=== PATIENT | female | born 2000 | race Caucasian/White ===

== ENCOUNTER 2022-04-16 20:10 | Emergency (ER) | payer BC, SELFPAY ==
[2022-04-16 20:24] VITALS: BP 113/65; PULSE 74; RESP 16; TEMP 36.8; O2SAT 99; BMI 22.9
--- NOTE | 2022-04-16 20:38 | ED_ITS ---
HPI - Eye Problem General Chief complaint: Eye Problems Stated complaint: RIGHT EYE VISION ISSUES,ITCHING Time Seen by Provider: 04/16/22 20:21 Source: patient Mode of arrival: ambulatory Limitations: no limitations History of Present Illness HPI Narrative: 21-year-old female coming in today concerned about right eye irritation going on since yesterday. She just feels that the eye is irritated and it bothers her. She denies it being painful. She states that her vision got a little bit blurry today. States that the eye is red but has no significant drainage. No light sensitivity. No pain above or below the eye. No headache. No nausea or vomiting. No fevers chills or other systemic symptoms. She denies any trauma or injury to the eye. She states that she use some clear eye eyedrops earlier today and caused a burning sensation. Related Data Home Medications Medication Instructions Recorded Confirmed cetirizine 10 mg tablet (Wal-Zyr 10 mg PO DAILY PRN 04/16/22 04/16/22 (cetirizine)) naphazoline 0.012 % eye drops 2 drp OPHTHALMIC (EYE) PRN 04/16/22 Allergies Allergy/AdvReac Type Severity Reaction Status Date / Time No Known Drug Allergies Allergy Verified 04/16/22 20:29 Review of Systems Status of ROS: Reports: 10 or more systems reviewed and unremarkable except as noted in History and below [facility] Medical History (Updated 04/16/22 @ 20:38 by Diana Mart MD) Environmental allergies Surgical History (Updated 04/16/22 @ 20:33 by Franchesca Vo RN) History of section Exam Const: Vital Signs, click to edit/add: Vital Signs - 24 hr 04/16/22 20:24 Temperature 98.3 F Pulse Rate [Left P ulse Oximeter] 74 Respiratory Rate 16 Blood Pressure [Ri ght Upper Arm] 113/65 Pulse Oximetry 99 Common normals: no apparent distress, average body habitus, oriented x3, no limitations, healthy appearing, alert and well nourished General appearance: cooperative, comfortable and well kempt HENMT: Common normals: normocephalic, head/scalp atraumatic, hearing grossly normal bilaterally, external ears normal and external nose normal Head and s calp: normocephalic and atraumatic Nose: external nose normal External ear: external ears normal Eye: Common normals: PERRL, EOMs intact bilaterally and no scleral icterus Visual acuity: visual acuity right eye Visual acuity (R) = 20/: 50 and visual acuity left eye Visual acuity (L) = 20/: 25 Alignment: alignment normal Conjunctiva: conjunctiva abnormal right conjunctival injection Sclera: sclerae normal Cornea: corneas normal and fluorescein used (No evidence of abrasions or foreign bodies visualized with Wood's lamp exam) Pupil: PERRL Neuro: Common normals: oriented x3 Sensorium/orientation: alert Psych: Appearance: well kempt Course Vital Signs Vital signs: Initial Vital Signs Temperature 98.3 F 04/16/22 20:24 Temperature Source Temporal Artery Scan 04/16/22 20:24 Pulse Rate 74 04/16/22 20:24 Respiratory Rate 16 04/16/22 20:24 Blood Pressure 113/65 04/16/22 20:24 Blood Pressure Mean 81 04/16/22 20:24 Blood Pressure Position High-Fowlers 04/16/22 20:24 Pulse Oximetry 99 04/16/22 20:24 Oxygen Delivery Method 04/16/22 20:24 Vital Signs Temperature 98.3 F 04/16/22 20:24 Pulse Rate 74 04/16/22 20:24 Respiratory Rate 16 04/16/22 20:24 Blood Pressure 113/65 04/16/22 20:24 Pulse Oximetry 99 04/16/22 20:24 Temperature 98.3 F 04/16/22 20:24 Pulse Rate 74 04/16/22 20:24 Respiratory Rate 16 04/16/22 20:24 Blood Pressure 113/65 04/16/22 20:24 Pulse Oximetry 99 04/16/22 20:24 MDM - Eye Problem MDM Narrative Medical decision making narrative: Irritation of the right eye with scleral injection. Probable conjunctivitis. Will treat with Polytrim eye ointment 3 times a day for 5 days. Discussed reasons to return for follow-up. Discussed potential differential diagnosis including conjunctivitis, iritis, increased intra-ocular pressure. Again patient is not improving with treatment in the next 1-2 days she has follow-up with an eye physician. Differential Diagnosis Differential diagnosis: Likely conjunctivitis and acute iritis Discharge Plan Discharge Clinical Impression: Conjunctivitis Patient Disposition: Home, Self-Care Condition: Stable Additional Instructions: Use eye antibiotic ointment 3 times per day for 5 days. Follow up with an eye doctor if you are not feeling relief in the next 2 days. Follow-up sooner if you are getting worse instead of better. Prescriptions: No Action cetirizine [Wal-Zyr (cetirizine)] 10 mg tablet 10 mg PO DAILY PRN0RF naphazoline 0.012 % drops 2 drp ophthalmic (eye) PRN0RF Follow Up/Referrals: Orlando Nelson PA-C [Primary Care Provider] - Stand Alone Forms: [employer] Info Instructions
[2022-04-16] MEDS: TETRACAINE 0.5% OPHTH 1 DROP EYE-RIGHT (21:20)
[2022-04-16] MEDS: FLUORESCEIN SODIUM TOPICAL STRIP 1 STRIP EYE-RIGHT (21:20)
== END 2022-04-16 21:35 | disposition home or self-care (01) ==
PROVIDERS: Emergency Provider Family Medicine; PCP Physician Assistant Medical
DX: H10.021 Other mucopurulent conjunctivitis, right eye (principal)
CPT/HCPCS: 99283; 99284; A9270

== ENCOUNTER 2022-08-06 14:07 | Emergency (ER) | payer BC, SELFPAY ==
[2022-08-06 14:13] VITALS: BP 102/68; PULSE 81; RESP 16; TEMP 36.9; O2SAT 99; BMI 22.3
--- NOTE | 2022-08-06 14:18 | ED.GENADULT ---
HPI - General Adult General Time Seen by Provider: 14:35 Date Seen: 08/06/22 Chief complaint: Sore Throat Stated complaint: Sore Throat Headache Chest Pressure Time Seen by Provider: 08/06/22 14:18 Source: patient, RN notes reviewed and old records reviewed Mode of arrival: ambulatory Limitations: no limitations History of Present Illness HPI narrative: Patient is a 21-year-old female previously healthy who denies who comes to the emergency room for evaluation of sore throat chest pressure and nasal congestion. Onset of symptoms yesterday with increasing symptoms overnight. She notes that Tylenol and ibuprofen does not seem to be helping a headache which has developed today. She is complaining sore throat that it increases with swallowing but she has been able to swallow. She notes no fever or chills. She does endorse loose stools. She is not vaccinated against COVID. She denies history of reactive airway or asthma or other major medical illness. In regards to chest pressure he has not been coughing considerably. She notes that she does get chest pressure with URIs in the past. She denies any heart problems, history of DVT, lower extremity edema or calf pain or visual changes. She works in a daycare. Related Data Home Medications Medication Instructions Recorded Confirmed No Known Home Medications 08/06/22 08/06/22 Allergies Allergy/AdvReac Type Severity Reaction Status Date / Time No Known Drug Allergies Allergy Verified 08/06/22 14:18 Review of Systems Status of ROS: Reports: 6 or more systems reviewed and unremarkable except as noted in History and below Const: Denies: fever or chills ENMT: Reports: throat pain; Denies: neck pain, difficulty swallowing or hoarseness Cardio: Reports: chest pain (Described as pressure in the upper aspect of the chest.); Denies: shortness of breath with exertion Resp: Denies: shortness of breath, cough or wheezing GI: Reports: diarrhea; Denies: abdominal pain, nausea, vomiting or difficulty swallowing : Denies: painful urination Musculo: Reports: extremity pain and extremity swelling; Denies: neck pain Neuro: Reports: headache (Not responsive to Tylenol or ibuprofen) Allergy/Immuno: Denies: wheezing PFSH PFSH Medical History Environmental allergies care following delivery Surgical History History of section Social History Narrative: singe, one child, non smoker, social alcohol, works in daycare Smoking Status: Never smoker Second hand tobacco smoke exposure: No Non-prescribed substance use: denies use Exam Narrative: Exam Narrative: Patient is alert and oriented. Nontoxic in appearance. Eyes are clear. Nose injection. TMs bilaterally without fluid. Right TM some slight retraction but light reflex still present. Oral cavity with moist mucous membranes. Possibly slight erythema or increased cobblestoning of the posterior oropharynx. Neck is supple no lymphadenopathy. Heart is with regular rate and rhythm without murmur or rub. Lungs are clear in all lung romo. Abdomen soft lower extremities without edema no calf tenderness. Const: Vital Signs, click to edit/add: Vital Signs - 24 hr 08/06/22 14:13 Temperature 98.5 F Pulse Rate [Right Pulse Oximeter] 81 Respiratory Rate 16 Blood Pressure [Ri ght Upper Arm] 102/68 Pulse Oximetry 99 Oxygen Delivery Me thod Room Air Documenting provider has reviewed patient's vital signs: yes Course Course Hospital Course: COVID/influenza/RSV as well as strep pending. EKG pending. Vital Signs Vital signs: Initial Vital Signs Temperature 98.5 F 08/06/22 14:13 Temperature Source Temporal Artery Scan 08/06/22 14:13 Pulse Rate 81 08/06/22 14:13 Respiratory Rate 16 08/06/22 14:13 Blood Pressure 102/68 08/06/22 14:13 Blood Pressure Mean 79 08/06/22 14:13 Blood Pressure Position Sitting 08/06/22 14:13 Pulse Oximetry 99 08/06/22 14:13 Oxygen Delivery Method 08/06/22 14:13 Vital Signs Temperature 98.5 F 08/06/22 14:13 Pulse Rate 81 08/06/22 14:13 Respiratory Rate 16 08/06/22 14:13 Blood Pressure 102/68 08/06/22 14:13 Pulse Oximetry 99 08/06/22 14:13 Oxygen Delivery Method 08/06/22 14:13 Temperature 98.5 F 08/06/22 14:13 Pulse Rate 81 08/06/22 14:13 Respiratory Rate 16 08/06/22 14:13 Blood Pressure 102/68 08/06/22 14:13 Pulse Oximetry 99 08/06/22 14:13 Oxygen Delivery Method 08/06/22 14:13 Medical Decision Making MDM Narrative Medical decision making narrative: 1. URI-patient is strongly suspicious for COVID and has tested negative today. Recommend isolation and retesting on SundayAugust 08 before returning to work. If she does return to work with a negative test would recommend masking until she her symptoms have dissipated. Push fluids, ibuprofen or Tylenol as needed. And rest. 2. Chest pressure -patient describes upper upper chest discomfort. EKG is reassuring. No symptoms or suggestion of DVT/PE, cardiac rub or arrhythmia. 3. Disposition-home. Symptomatic cares. Return to the emergency room for chest pain, shortness of breath, worsening or onset of new symptoms. Medical Records Medical records reviewed: Yes I reviewed the patient's medical records Lab Data Lab results reviewed: Yes I reviewed the patient's lab results Labs: Lab Results 08/06/22 08/06/22 Range/Units 14:30 14:30 SARS-CoV-2 (PCR) Negative SARS-CoV-2 (Negative) Influenza Type A (PCR) Negative PCR FLU A (Negative) Influenza Type B (PCR) Negative PCR FLU B (Negative) RSV (PCR) Negative PCR RSV (Negative) Group A Strep DNA NOT DETECTED (Not Detectd) ECG Data Attestation: I personally reviewed and interpreted this ECG as follows: Prior ECG tracings: not available for review Interpretation: By my read EKG shows sinus rhythm at a rate of 71. I do not note any acute ST or T-wave changes noted. EKG notes septal infarct. I do believe there is a small are in V2 and thus disagree with computer interpretation. Discharge Plan Discharge Clinical Impression: URI (upper respiratory infection) Patient Disposition: Home, Self-Care Condition: Unchanged Additional Instructions: Your strongly suspicious for COVID although you tested negative today. Would recommend isolating and on Sunday. Push fluids. Ibuprofen or Tylenol as needed for discomfort. Seek medical attention for worsening symptoms. Prescriptions: No Action No Known Home Medications Follow Up/Referrals: Orlando Nelson PA-C [Primary Care Provider] - Stand Alone Forms: [employer] Info Instructions
[2022-08-06 15:02] LABS: Strep A DNA Probe* NOT DETECTED (Not Detectd)
[2022-08-06 15:15] LABS: PCR FLU A Negative PCR FLU A (Negative); PCR FLU B Negative PCR FLU B (Negative); PCR RSV Negative PCR RSV (Negative)
[2022-08-06 15:16] LABS: SARS PCR* Negative SARS-CoV-2 (Negative)
[2022-08-06 16:01] VITALS: BP 102/68; PULSE 81; RESP 16; TEMP 36.9
== END 2022-08-06 16:02 | disposition home or self-care (01) ==
PROVIDERS: Emergency Provider Family Medicine; PCP Physician Assistant Medical
DX: J06.9 Acute upper respiratory infection, unspecified (principal)
CPT/HCPCS: 87502; 87634; 87635; 87651; 93005; 99283; 99284

== ENCOUNTER 2022-08-23 11:12 | Emergency (ER) | payer BC, SELFPAY ==
[2022-08-23 11:20] VITALS: BP 93/59; PULSE 74; RESP 14; TEMP 36.2; O2SAT 97; BMI 21.9
[2022-08-23 11:42] LABS: Appearance Urine Clear (Clear); Bilirubin Urine Negative (Negative); Blood Urine Trace-intact (Negative); Color Urine Yellow (Yellow); Glucose Urine Negative (Negative); Ketones Urine Negative (Negative); Leukocyte Esterase Urine Negative (Negative); Nitrite Urine Negative (Negative); Protein Urine Negative (Negative); Specific Gravity Urine >= 1.030 (1.000-1.030); Urobilinogen Urine 0.2 (0.2-1.0); pH Urine 5.5 (5.0-8.5)
--- NOTE | 2022-08-23 11:44 | ED.GENADULT ---
HPI - General Adult General Time Seen by Provider: 11:45 Date Seen: 08/23/22 Chief complaint: Abdominal Pain Stated complaint: Abdominal pain right side Time Seen by Provider: 08/23/22 11:57 Source: patient Mode of arrival: ambulatory History of Present Illness HPI narrative: Mariza is a 21 year old female with no past medical history presents emerged department via private car with abdominal pain. Patient states she has had abdominal pain over the last week, instructed by primary care provider to be evaluated in the emergency department. She denies any nausea vomiting, she has not had any diarrhea, she denies any urinary complaints. Patient states the pain is intermittent, comes and goes, pain is crampy in nature, she has increased urinary frequency but no dysuria or hematuria. She is eating and drinking normally, no changes with food, no pain with ambulation. She denies any fevers or chills, she denies any upper respiratory complaints. Patient is doing well otherwise, her only abdominal surgery is a . Menstrual cycle has been normal. No other concerns at this time, she has no pain at this time. Related Data Home Medications Medication Instructions Recorded Confirmed No Known Home Medications 08/06/22 08/06/22 Allergies Allergy/AdvReac Type Severity Reaction Status Date / Time No Known Drug Allergies Allergy Verified 08/09/22 16:01 Review of Systems Status of ROS: Reports: 10 or more systems reviewed and unremarkable except as noted in History and below [facility] Medical History Environmental allergies care following delivery Surgical History History of section Social History Narrative: loren, one child, non smoker, social alcohol, works in daycare Smoking Status: Never smoker Second hand tobacco smoke exposure: No How often do you have a drink containing alcohol: monthly or less AUDIT-C Alcohol total score: 1 Non-prescribed substance use: denies use Exam Narrative: Exam Narrative: General: No obvious distress sitting comfortably HEENT: Pupils equal round reactive to light Neck: Supple Lungs: Clear to auscultation bilaterally Heart: Normal sinus rhythm S1-S2 Abdomen: Mild tenderness to palpation right lower quadrant Muscle skeletal: +5 upper and lower extremities Neuro: Alert awake and oriented x3 Const: Vital Signs, click to edit/add: Vital Signs - 24 hr 08/23/22 11:20 08/23/22 15:33 08/23/22 15:00 Temperature 97.1 F L 97.1 F L Pulse Rate [Pulse Oximeter] 74 74 66 Respiratory Rate 14 14 12 Blood Pressure [Ri ght Upper Arm] 93/59 L 93/59 L 101/59 L Pulse Oximetry 97 98 Oxygen Delivery Me thod Room Air Course Course Hospital Course: 12:30 PM: AIDET performed, workup will include CBC, CRP, CMP, lipase, urinalysis urine test, patient has no pain at this time, less likely appendicitis since pain has been intermittent, will await for lab results to see if further imaging to be obtained. Reevaluation(s) Reevaluation #1: Patient was updated on her lab results, urinalysis showed few bacteria trace RBC, urine culture was sent, UTI less likely, urine test negative, CBC showed no leukocytosis, CRP was negative, metabolic panel unremarkable, plan would be to obtain U.S. TA and TV rule out any ovarian cyst, appendicitis less likely due to reassuring labs and benign exam, less likely urolithiasis possible ovarian cyst. Patient was in agreement, patient is asymptomatic at this time. Time: 14:51 Reevaluation #2: patient updated on the imaging results, Ovaries: The right ovary measures 4 x 1.5 x 2.8 cm and left ovary measures 2.3 x 1.4 x 1.7 cm. Right ovarian lesion is probably a hemorrhagic cyst and measures 1.7 x 1.4 x 1.6 cm. No ovarian or adnexal masses. Normal arterial and venous blood flow in both ovaries. Patient is doing well, no further work up. plan to discharge. Patient should follow up with her primary care provider over the next 7-10 days. All questions answered. Vital Signs Vital signs: Initial Vital Signs Temperature 97.1 F L 08/23/22 11:20 Temperature Source Temporal Artery Scan 08/23/22 11:20 Pulse Rate 74 08/23/22 11:20 Pulse Rhythm 08/23/22 11:20 Respiratory Rate 14 08/23/22 11:20 Blood Pressure 93/59 L 08/23/22 11:20 Blood Pressure Mean 70 08/23/22 11:20 Blood Pressure Position Sitting 08/23/22 11:20 Pulse Oximetry 97 08/23/22 11:20 Oxygen Delivery Method 08/23/22 11:20 Vital Signs Temperature 97.1 F L 08/23/22 11:20 Pulse Rate 74 08/23/22 11:20 Respiratory Rate 14 08/23/22 11:20 Blood Pressure 93/59 L 08/23/22 11:20 Pulse Oximetry 97 08/23/22 11:20 Oxygen Delivery Method 08/23/22 11:20 Temperature 97.1 F L 08/23/22 15:33 Pulse Rate 74 08/23/22 15:33 Respiratory Rate 14 08/23/22 15:33 Blood Pressure 93/59 L 08/23/22 15:33 Pulse Oximetry 98 08/23/22 15:00 Oxygen Delivery Method 08/23/22 11:20 Medical Decision Making Lab Data Labs: Lab Results 08/23/22 08/23/22 08/23/22 Range/Units 11:25 11:30 12:24 WBC 5.84 (4.50-11.00) K/uL RBC 4.57 (4.00-5.20) m/uL Hgb 14.0 (12.0-16.0) gm/dL Hct 41.5 (33.0-51.0) % MCV 91 (80-100) fL MCH 31 (26-34) pg MCHC 34 (32-36) gm/dL RDW Coeff of Swetha 11.7 (11.5-15.5) % Plt Count 217 (140-440) K/uL Neut % (Auto) 63.8 (42.0-72.0) % Lymph % (Auto) 28.4 (20-44) % Traill % (Auto) 6.3 (0.0-11.0) % Eos % (Auto) 1.0 (0.0-7.0) % Baso % (Auto) 0.3 (0.0-3.0) % Neut # (Auto) 3.72 (1.7-7.0) K/uL Lymph # (Auto) 1.66 (0.90-2.90) K/uL Traill # (Auto) 0.40 (0.00-0.90) K/UL Eos # (Auto) 0.06 (0.00-0.50) K/uL Baso # (Auto) 0.02 (0.00-0.30) K/uL Abs Immat Gran (auto) 0.01 (0.00-0.30) K/uL Imm/Tot Granulo (auto) 0.2 % Sodium (135-149) mmol/L Potassium (3.6-5.1) mmol/L Chloride (96-114) mmol/L Carbon Dioxide (20-32) mmol/L BUN (5-24) mg/dL Creatinine (0.5-1.5) mg/dL Estimated Creat Clear Estimated GFR ml/min Glucose (60-115) mg/dL Calcium (8.4-10.6) mg/dL Total Bilirubin (0.1-1.5) mg/dL AST (12-35) U/L ALT (4-35) U/L Alkaline Phosphatase (40-150) U/L C-Reactive Protein (0.5-1.0) mg/dL Total Protein (6.0-8.3) g/dL Albumin (3.3-5.0) g/dL Lipase (23-300) U/L HCG, Qual Negative (Negative) Urine Color Yellow (Yellow) Urine Appearance Clear (Clear) Urine pH 5.5 (5.0-8.5) Ur Specific [place] >= 1.030 (1.000-1.030) Urine Protein Negative (Negative) Urine Glucose (UA) Negative (Negative) Urine Ketones Negative (Negative) Urine Blood Trace-intact A (Negative) Urine Nitrite Negative (Negative) Urine Bilirubin Negative (Negative) Urine Urobilinogen 0.2 (0.2-1.0) Ur Leukocyte Esterase Negative (Negative) Urine RBC 0-2 (0-2) Urine WBC 0-2 (0-5) Ur Squamous Epith Cells Few (None-Few) Urine Bacteria Few A (None) 08/23/22 Range/Units 12:24 WBC (4.50-11.00) K/uL RBC (4.00-5.20) m/uL Hgb (12.0-16.0) gm/dL Hct (33.0-51.0) % MCV (80-100) fL MCH (26-34) pg MCHC (32-36) gm/dL RDW Coeff of Swetha (11.5-15.5) % Plt Count (140-440) K/uL Neut % (Auto) (42.0-72.0) % Lymph % (Auto) (20-44) % Traill % (Auto) (0.0-11.0) % Eos % (Auto) (0.0-7.0) % Baso % (Auto) (0.0-3.0) % Neut # (Auto) (1.7-7.0) K/uL Lymph # (Auto) (0.90-2.90) K/uL Traill # (Auto) (0.00-0.90) K/UL Eos # (Auto) (0.00-0.50) K/uL Baso # (Auto) (0.00-0.30) K/uL Abs Immat Gran (auto) (0.00-0.30) K/uL Imm/Tot Granulo (auto) % Sodium 141 (135-149) mmol/L Potassium 4.3 (3.6-5.1) mmol/L Chloride 107 (96-114) mmol/L Carbon Dioxide 27 (20-32) mmol/L BUN 23 (5-24) mg/dL Creatinine 0.6 (0.5-1.5) mg/dL Estimated Creat Clear 115.33 Estimated GFR 129 ml/min Glucose 70 (60-115) mg/dL Calcium 9.1 (8.4-10.6) mg/dL Total Bilirubin 0.3 (0.1-1.5) mg/dL AST 20 (12-35) U/L ALT 15 (4-35) U/L Alkaline Phosphatase 60 (40-150) U/L C-Reactive Protein < 0.5 L (0.5-1.0) mg/dL Total Protein 7.1 (6.0-8.3) g/dL Albumin 4.2 (3.3-5.0) g/dL Lipase 132 (23-300) U/L HCG, Qual (Negative) Urine Color (Yellow) Urine Appearance (Clear) Urine pH (5.0-8.5) Ur Specific [place] (1.000-1.030) Urine Protein (Negative) Urine Glucose (UA) (Negative) Urine Ketones (Negative) Urine Blood (Negative) Urine Nitrite (Negative) Urine Bilirubin (Negative) Urine Urobilinogen (0.2-1.0) Ur Leukocyte Esterase (Negative) Urine RBC (0-2) Urine WBC (0-5) Ur Squamous Epith Cells (None-Few) Urine Bacteria (None) Discharge Plan Discharge Clinical Impression: Hemorrhagic cyst of right ovary Patient Disposition: Home, Self-Care Condition: Improved Instructions: Ovarian Cyst (ED) Additional Instructions: To take Tylenol 1 gram or Motrin 600 mg every 4-6 hours as needed for pain, to follow-up as needed with primary care provider over the next 7-10 days, return if worsening symptoms. Activity Level: No Restrictions Prescriptions: No Action No Known Home Medications Follow Up/Referrals: Orlando Nelson PA-C [Primary Care Provider] - Stand Alone Forms: [employer] Info Instructions
[2022-08-23 12:02] LABS: Bacteria Urine Few; RBC Urine 0-2 (0-2); WBC Urine 0-2 (0-5)
[2022-08-23 12:03] LABS: Squamous Epithelial Cell Urine Few (None-Few)
[2022-08-23 12:33] LABS: Basophils Absolute Auto 0.02 K/uL (0.00-0.30); Basophils Percent Auto 0.3 % (0.0-3.0); Eosinophils Absolute Auto 0.06 K/uL (0.00-0.50); Hematocrit 41.5 % (33.0-51.0); Immature Granulocytes Abs Auto 0.01 K/uL (0.00-0.30); Immature Granulocytes Pct Auto 0.2 %; Lymphocytes Absolute Auto 1.66 K/uL (0.90-2.90); Lymphocytes Percent Auto 28.4 % (20-44); Mean Corpuscular HGB Conc 34 gm/dL (32-36); Mean Corpuscular Hemoglobin 31 pg (26-34); Mean Corpuscular Volume 91 fL (80-100); Monocytes Percent Auto 6.3 % (0.0-11.0); Neutrophils Absolute Auto 3.72 K/uL (1.7-7.0); Neutrophils Percent Auto 63.8 % (42.0-72.0); Platelet Count* 217 K/uL (140-440); RDW Coefficient of Variation % 11.7 % (11.5-15.5); Red Blood Count 4.57 m/uL (4.00-5.20); White Blood Count* 5.84 K/uL (4.50-11.00)
[2022-08-23 12:34] LABS: Slide Review Reflex No
[2022-08-23 12:57] LABS: Albumin* 4.2 g/dL (3.3-5.0); Chloride* 107 mmol/L (96-114); Sodium* 141 mmol/L (135-149)
[2022-08-23 12:58] LABS: Potassium* 4.3 mmol/L (3.6-5.1)
[2022-08-23 13:00] LABS: Alanine Aminotransferase* 15 U/L (4-35); Alkaline Phosphatase* 60 U/L (40-150); Aspartate Amino Transferase* 20 U/L (12-35); Bilirubin Total* 0.3 mg/dL (0.1-1.5); Blood Urea Nitrogen* 23 mg/dL (5-24); Carbon Dioxide* 27 mmol/L (20-32); Creatinine* 0.6 mg/dL (0.5-1.5); Est. Creatinine Clearance* 115.33; Estimated Glomerular Filt Rate 129 ml/min; Lipase* 132 U/L (23-300); Total Protein* 7.1 g/dL (6.0-8.3)
[2022-08-23 13:01] LABS: Calcium* 9.1 mg/dL (8.4-10.6)
[2022-08-23 13:41] LABS: Glucose* 70 mg/dL (60-115)
[2022-08-23 13:48] LABS: C Reactive Protein* < 0.5 mg/dL (0.5-1.0)
[2022-08-23 14:25] LABS: HCG Qualitative* Negative (Negative)
--- NOTE | 2022-08-23 14:26 | CRLHL7_ITS ---
For Patients: As a result of the Century Cures Act, medical imaging exams and procedure reports are released immediately into your electronic medical record. You may view this report before your referring provider. If you have questions, please contact your health care provider. INDICATION: Right lower quadrant pain for 1 week. TECHNIQUE: Ultrasound pelvis transabdominal and transvaginal for better assessment or to better visualize the endometrium. Real-time sonographic images with spectral and color Doppler imaging of the ovaries were obtained. COMPARISON: None. FINDINGS: Uterus: 8.1 x 3.4 x 4.8 cm. Normal echotexture of the myometrium. No masses. Endometrium: Transvaginal imaging was performed to better evaluate the endometrium. Endometrial thickness measures 9 mm. No sign of endometrial mass or fluid. Ovaries: The right ovary measures 4 x 1.5 x 2.8 cm and left ovary measures 2.3 x 1.4 x 1.7 cm. Right ovarian lesion is probably a hemorrhagic cyst and measures 1.7 x 1.4 x 1.6 cm. No ovarian or adnexal masses. Normal arterial and venous blood flow in both ovaries. Cul-de-sac: Physiologic amount of free fluid. IMPRESSION: Normal sonographic appearance of the pelvis. Dictated by Butch Han MD @ 08/23/2022 4:03:03 PM (Electronically Signed)
[2022-08-23 15:00] VITALS: BP 101/59; PULSE 66; RESP 12; O2SAT 98
[2022-08-23 15:33] VITALS: BP 93/59; PULSE 74; RESP 14; TEMP 36.2
== END 2022-08-23 15:34 | disposition home or self-care (01) ==
PROVIDERS: Emergency Provider Student in an Organized Health Care Education/Training Program; PCP Physician Assistant Medical
DX: N83.201 Unspecified ovarian cyst, right side (principal)
CPT/HCPCS: 36415; 76830; 76856; 80053; 81003; 81015; 83690; 84703; 85025; 86140; 87086; 93976; 99283; 99284

== ENCOUNTER 2022-11-17 15:53 | Outpatient (CLI) | payer BC, SELFPAY ==
--- NOTE | 2022-11-17 16:00 | CRLHL7_ITS ---
For Patients: As a result of the Century Cures Act, medical imaging exams and procedure reports are released immediately into your electronic medical record. You may view this report before your referring provider. If you have questions, please contact your health care provider. INDICATION: Follow-up right ovarian cyst. COMPARISON: Pelvic ultrasound 08/23/2022. TECHNIQUE: 2D perez scale and color Doppler images were acquired of the pelvis using a transvaginal approach. FINDINGS: Sonographic images demonstrate a normal size and smooth outer contour of the uterus. The uterus is anteverted in position. The uterus measures 8.1 cm in length by 3.4 cm in AP diameter by 4.4 cm in transverse dimension. The myometrium has uniform echotexture. The endometrial lining measures 5 mm in composite thickness. The right ovary measures 4.0 x 2.5 x 2.7 cm and the left ovary measures 3.6 x 1.5 x 1.8 cm. Blood flow is present within both ovaries. Small follicles in both ovaries. Resolution of the previously seen complex right ovarian lesion. No free fluid in the cul-de-sac. IMPRESSION: 1. Resolution of the previously seen complex right ovarian lesion. 2. Exam otherwise unremarkable. Dictated by Maryjane Panda MD @ 11/19/2022 9:06:05 PM (Electronically Signed)
== END 2022-11-17 15:54 | disposition home or self-care (01) ==
LOC: US 15:54
PROVIDERS: PCP Physician Assistant Medical; Visit Provider Physician Assistant
DX: N83.201 Unspecified ovarian cyst, right side (principal)
CPT/HCPCS: 76830

== ENCOUNTER 2023-06-14 07:48 | Outpatient (CLI) | payer BC, SELFPAY | END 2023-06-14 07:49 | disposition home or self-care (01) | LOC: NFLDREF 06-15 06:58 | PROVIDERS: PCP Physician Assistant Medical; Referring Provider Physician Assistant Medical; Visit Provider Emergency Medicine | DX: R10.9 Unspecified abdominal pain (principal) | CPT/HCPCS: 87086 ==

== ENCOUNTER 2023-06-21 08:57 | Outpatient (CLI) | payer BC, SELFPAY ==
--- NOTE | 2023-06-21 09:15 | CRLHL7_ITS ---
For Patients: As a result of the Century Cures Act, medical imaging exams and procedure reports are released immediately into your electronic medical record. You may view this report before your referring provider. If you have questions, please contact your health care provider. CLINICAL HISTORY: Unspecified abdominal pain TECHNIQUE: 2D perez scale ultrasound. In addition color Doppler and spectral Doppler analysis was performed of the pelvis using a transabdominal approach. FINDINGS: On transabdominal imaging, the myometrium has a normal uniform echotexture. The uterus measures 7.5 x 3.0 x 4.6 cm the endometrial lining measures 1 mm in thickness. The right ovary measures 4.0 x 2.0 x 2.0 cm in size and the left ovary measures 4.5 x 1.6 x 2.1 cm. The ovaries demonstrate normal arterial and venous blood flow on color Doppler and spectral Doppler analysis. There are no suspicious fluid collections within the cul-de-sac. IMPRESSION: Normal pelvic ultrasound. No torsion. Dictated by Nate Carrizales MD @ 06/21/2023 10:56:32 AM (Electronically Signed)
== END 2023-06-21 08:58 | disposition home or self-care (01) ==
PROVIDERS: PCP Physician Assistant Medical; Visit Provider Emergency Medicine
DX: R10.9 Unspecified abdominal pain (principal)
CPT/HCPCS: 76856; 93976

== ENCOUNTER 2024-05-18 17:25 | Emergency (ER) | payer BC, SELFPAY ==
[2024-05-18 17:40] VITALS: BP 104/71; PULSE 96; RESP 18; TEMP 37.2; O2SAT 96; BMI 23.8
--- NOTE | 2024-05-18 17:52 | ED.GENADULT ---
HPI - General Adult General Chief complaint: Sore Throat Stated complaint: body aches, weakness Time Seen by Provider: 05/18/24 17:27 Source: patient Mode of arrival: ambulatory Limitations: no limitations History of Present Illness HPI narrative: 23-year-old female coming in today complaining of fatigue, sore throat and body aches. She denies any fevers or chills. No chest or abdominal pain. No skin rashes. She denies a cough. She had headache yesterday but that seems to be little bit better today. Denies any recent traveling. Patient does work in a daycare. Related Data Home Medications ?Medication ?Instructions ?Recorded ?Confirmed multivitamin 1 tab PO QAM 11/22/22 06/14/23 Allergies Allergy/AdvReac Type Severity Reaction Status Date / Time No Known Drug Allergies Allergy Verified 05/18/24 17:44 Review of Systems Status of ROS: Reports: 10 or more systems reviewed and unremarkable except as noted in History and below [facility] Medical History Eczema ?L30.9 - Dermatitis, unspecified (ICD-10) Abdominal pain ?R10.9 - Unspecified abdominal pain (ICD-10) Surgical History History of section ?Z98.891 - History of uterine scar from previous surgery (ICD-10) Social History Narrative: loren, one child, non smoker, social alcohol, works in daycare Smoking Status: Never smoker Second hand tobacco smoke exposure: No How often do you have a drink containing alcohol: monthly or less AUDIT-C Alcohol total score: 1 Non-prescribed substance use: denies use Little interest or pleasure in doing things: not at all Feeling down, depressed, or hopeless: not at all Exam Narrative: Exam Narrative: Well-nourished well-developed patient in no acute distress. Alert and oriented. Answers questions appropriately. Mood and affect are appropriate. Thoughts are goal oriented and rational. No tangential or magical thinking noted. Patient speaks in full sentences without needing to catch her breath. HEENT: Normocephalic atraumatic. Pupils are equally round reactive to light. Extraocular muscles are intact. Conjunctivae are moist without any icterus noted. Moist mucous membranes. Posterior pharynx shows tonsillar swelling with exudates present, right greater than the left. Neck is soft without any lymphadenopathy or thyromegaly. No masses are appreciated. Cardiovascular: Heart is regular rate and rhythm S1 and S2 are present without any murmurs. Lungs: Clear to auscultation bilaterally no wheezes rhonchi or rales are appreciated. Patient takes deep breaths without any discomfort. Skin: Well perfused without any obvious rashes. Const: Vital Signs, click to edit/add: Vital Signs - 24 hr 05/18/24 17:40 Temperature 99.0 F Pulse Rate [Left P ulse Oximeter] 96 Respiratory Rate 18 Blood Pressure [Ri ght Upper Arm] 104/71 Pulse Oximetry 96 Oxygen Delivery Me thod Room Air Course Course ED Course: Triple swab was negative. Rapid strep negative. Blood work was unremarkable aside from elevated CRP UA was positive for blood, patient menstruating. Discussed results with the patient. I do think she has a tonsillitis. Cover with antibiotics. Vital Signs Vital signs: Initial Vital Signs Temperature 99.0 F 05/18/24 17:40 Temperature Source Temporal Artery Scan 05/18/24 17:40 Pulse Rate 96 05/18/24 17:40 Respiratory Rate 18 05/18/24 17:40 Blood Pressure 104/71 05/18/24 17:40 Blood Pressure Mean 82 05/18/24 17:40 Blood Pressure Position Sitting 05/18/24 17:40 Pulse Oximetry 96 05/18/24 17:40 Oxygen Delivery Method Room Air 05/18/24 17:40 Vital Signs Temperature 99.0 F 05/18/24 17:40 Pulse Rate 96 05/18/24 17:40 Respiratory Rate 18 05/18/24 17:40 Blood Pressure 104/71 05/18/24 17:40 Pulse Oximetry 96 05/18/24 17:40 Oxygen Delivery Method Room Air 05/18/24 17:40 Temperature 99.0 F 05/18/24 17:40 Pulse Rate 96 05/18/24 17:40 Respiratory Rate 18 05/18/24 17:40 Blood Pressure 104/71 05/18/24 17:40 Pulse Oximetry 96 05/18/24 17:40 Oxygen Delivery Method Room Air 05/18/24 17:40 Medical Decision Making MDM Narrative Medical decision making narrative: Sore throat, tonsillitis. Will treat with amoxicillin. Lab Data Lab results reviewed: Yes I reviewed the patient's lab results Labs: Lab Results 05/18/24 05/18/24 05/18/24 Range/Units 17:51 19:06 19:10 WBC 5.83 (4.50-11.00) K/uL RBC 4.43 (4.00-5.20) m/uL Hgb 13.6 (12.0-16.0) gm/dL Hct 39.8 (33.0-51.0) % MCV 90 (80-100) fL MCH 31 (26-34) pg MCHC 34 (32-36) gm/dL RDW Coeff of Swetha 11.2 L (11.5-15.5) % Plt Count 164 (140-440) K/uL Neut % (Auto) 73.4 H (42.0-72.0) % Lymph % (Auto) 15.3 L (20-44) % Barrow % (Auto) 11.1 H (0.0-11.0) % Eos % (Auto) 0.0 (0.0-7.0) % Baso % (Auto) 0.0 (0.0-3.0) % Neut # (Auto) 4.30 (1.7-7.0) K/uL Lymph # (Auto) 0.90 (0.90-2.90) K/uL Barrow # (Auto) 0.60 (0.00-0.90) K/UL Eos # (Auto) 0.00 (0.00-0.50) K/uL Baso # (Auto) 0.00 (0.00-0.30) K/uL Abs Immat Gran (auto) 0.01 (0.00-0.30) K/uL Imm/Tot Granulo (auto) 0.2 % Sodium 136 (135-149) mmol/L Potassium 3.1 L (3.6-5.1) mmol/L Chloride 102 (96-114) mmol/L Carbon Dioxide 25 (20-32) mmol/L Anion Gap 9 (7-15) mEq/L BUN 17 (5-24) mg/dL Creatinine 0.6 (0.5-1.5) mg/dL Estimated Creat Clear 113.36 Estimated GFR 128 ml/min Glucose 87 (60-115) mg/dL Lactate 0.9 (0.5-1.9) mmol/L Calcium 8.7 (8.4-10.6) mg/dL Total Bilirubin 0.9 (0.1-1.5) mg/dL Direct Bilirubin 0.2 (0.0-0.5) mg/dL AST 25 (12-35) U/L ALT 14 (4-35) U/L Alkaline Phosphatase 54 (40-150) U/L C-Reactive Protein 6.5 H (0.5-1.0) mg/dL Total Protein 7.7 (6.0-8.3) g/dL Albumin 4.5 (3.3-5.0) g/dL Urine Color (Yellow) Urine Appearance (Clear) Urine pH (5.0-8.5) Ur Specific Harrison (1.000-1.030) Urine Protein (Negative) Urine Glucose (UA) (Negative) Urine Ketones (Negative) Urine Blood (Negative) Urine Nitrite (Negative) Urine Bilirubin (Negative) Urine Urobilinogen (0.2-1.0) Ur Leukocyte Esterase (Negative) Urine RBC (0-2) Urine WBC (0-5) Ur Squamous Epith Cells (None-Few) Urine Bacteria (None) Urine Mucus (None) Urine HCG, Qual (Negative) SARS-CoV-2 (PCR) Negative SARS-CoV-2 (Negative) Monoscreen Negative (Negative) Influenza Type A (PCR) Negative PCR FLU A (Negative) Influenza Type B (PCR) Negative PCR FLU B (Negative) RSV (PCR) Negative PCR RSV (Negative) Group A Strep DNA NOT DETECTED (Not Detectd) 05/18/24 Range/Units 19:19 WBC (4.50-11.00) K/uL RBC (4.00-5.20) m/uL Hgb (12.0-16.0) gm/dL Hct (33.0-51.0) % MCV (80-100) fL MCH (26-34) pg MCHC (32-36) gm/dL RDW Coeff of Swetha (11.5-15.5) % Plt Count (140-440) K/uL Neut % (Auto) (42.0-72.0) % Lymph % (Auto) (20-44) % Barrow % (Auto) (0.0-11.0) % Eos % (Auto) (0.0-7.0) % Baso % (Auto) (0.0-3.0) % Neut # (Auto) (1.7-7.0) K/uL Lymph # (Auto) (0.90-2.90) K/uL Barrow # (Auto) (0.00-0.90) K/UL Eos # (Auto) (0.00-0.50) K/uL Baso # (Auto) (0.00-0.30) K/uL Abs Immat Gran (auto) (0.00-0.30) K/uL Imm/Tot Granulo (auto) % Sodium (135-149) mmol/L Potassium (3.6-5.1) mmol/L Chloride (96-114) mmol/L Carbon Dioxide (20-32) mmol/L Anion Gap (7-15) mEq/L BUN (5-24) mg/dL Creatinine (0.5-1.5) mg/dL Estimated Creat Clear Estimated GFR ml/min Glucose (60-115) mg/dL Lactate (0.5-1.9) mmol/L Calcium (8.4-10.6) mg/dL Total Bilirubin (0.1-1.5) mg/dL Direct Bilirubin (0.0-0.5) mg/dL AST (12-35) U/L ALT (4-35) U/L Alkaline Phosphatase (40-150) U/L C-Reactive Protein (0.5-1.0) mg/dL Total Protein (6.0-8.3) g/dL Albumin (3.3-5.0) g/dL Urine Color Dark yellow (Yellow) Urine Appearance Clear (Clear) Urine pH 5.5 (5.0-8.5) Ur Specific Harrison >= 1.030 (1.000-1.030) Urine Protein 1+ A (Negative) Urine Glucose (UA) Negative (Negative) Urine Ketones 2+ A (Negative) Urine Blood 1+ A (Negative) Urine Nitrite Negative (Negative) Urine Bilirubin Negative (Negative) Urine Urobilinogen 0.2 (0.2-1.0) Ur Leukocyte Esterase Negative (Negative) Urine RBC 2-5 A (0-2) Urine WBC 0-2 (0-5) Ur Squamous Epith Cells None (None-Few) Urine Bacteria Few A (None) Urine Mucus Moderate A (None) Urine HCG, Qual Negative (Negative) SARS-CoV-2 (PCR) (Negative) Monoscreen (Negative) Influenza Type A (PCR) (Negative) Influenza Type B (PCR) (Negative) RSV (PCR) (Negative) Group A Strep DNA (Not Detectd) Discharge Plan Discharge Clinical Impression: Acute tonsillitis Patient Disposition: Home, Self-Care Condition: Stable Additional Instructions: Take all antibiotics as prescribed. Okay to use ibuprofen or Tylenol for discomfort. Return to the ER if you feel like your symptoms are getting worse instead of better despite antibiotic therapy. Amox[facility] sent to [facility]. Prescriptions: No Action multivitamin Tablet 1 tab PO QAM Follow Up/Referrals: Orlando Nelson PA-C [Primary Care Provider] - Stand Alone Forms: MyHealth Info Instructions
--- OUTSIDE RECORDS SUMMARY | 2024-05-18 18:00 | XMS_ITS | Clinical Summary ---
Author Organization [facility] Address [place], [place] [address] Care Team Providers Care Rn Baby Name Role Phone Priscilla Nelson MD Primary Care Provider [phone] Allergies No known active allergies Medications Medication Sig Dispensed Refills Start Date End Date Status vitamin-folic acid 1 mg ( RX) tablet/capsule Take 1 tablet by mouth once daily. 0 12/02/2018 Active amoxicillin-clavulanat e 875-125 mg tablet (AUGMENTIN)Indications :Right otitis media, unspecified otitis media type Take 1 tablet by mouth 2 times daily with meals. 20 tablet 01/05/2019 Active Active Problems No known active problems Immunizations Name Administration Dates Next Due DTP 09/25/2000 DTaP 06/08/2004, 1,09/25/2000,08/23,03/22/1999 HIB PRP-OMP (PedvaxHIB) 09/25/2000,08/23/2000, HIB PRP-T (ActHIB,Hiberix) 09/25/2000,08/23/2000 HIB-HepB (Comvax) 05/10/1999 HPV 9 (Gardasil 9) 08/01/2018 Hepatitis B (Peds) 09/25/2000, 0,08/23/2000,08/23,05/10/1999,03/22/1999 Inactivated Polio Vaccine 10/30/2000,,08/23/2000,08/17,03/22/1999 MMR 09/06/2004,06/15/2004,08/14/2000 Meningococcal Vaccine (Menveo) 08/01/2018 Pneumococcal conj 7-Valent (Prevnar 7) 1,08/14/2000 Tdap 05/05/2011 Varicella Vaccine 05/05/2011,08/14/2000,08/14/20 00 Social History Tobacco Use Types Packs/Day Years Used Date Smoking Tobacco: Never Smokeless Tobacco: Never Tobacco Cessation:Counseling Given: Yes Alcohol Use Standard Drinks/Week Comments Yes 0 (1 standard drink = 0.6 oz pur e alcohol) Rarely- none while PHQ-2 Answer Date Recorded PHQ-2 Score 0 12/08/2018 Sex and Gender Information Value Date Recorded Sex Assigned at Not on file Gender Identity Not on file Sexual Orientation Not on file Obstetrics History Para Term AB IAB SAB Ectopic Multiple Livin g Live Births 1 Date Outcome GA Total Labor Labor/2nd/3rd Weight Sex Type Anes PTL Minna A1 A5 Name Clin Last Filed Vital Signs Vital Sign Reading Time Taken Comments Blood Pressure 115/66 01/05/2019 2:51 PM CDT Pulse 84 01/05/2019 2:51 PM CDT Temperature 36.8 ??C (98.3 ??F) 01/05/2019 2:51 PM CD T Respiratory Rate 18 01/05/2019 2:51 PM CDT Oxygen Saturation 100% 01/05/2019 2:51 PM CDT Inhaled Oxygen Concentration - - Weight 59 kg (130 lb) 01/05/2019 2:51 PM CDT Height 157.5 cm (5' 2) 01/05/2019 2:51 PM CDT Body Mass Index 23.78 01/05/2019 2:51 PM CDT Plan of Treatment Health Maintenance Due Date Last Done Comments Hepatitis C screening for age 18-79 2016 HPV series for age 9-26 (2 - 3-dose series) 08/29/2018 08/01/2018 BMI (ht and wt on same day) for age 18+ 12/02/2019 12/02/2018, 10/29/2018, 08/01/2018, Additional history exists Depression screening for age 12+ 12/03/2019 12/03/2018, 12/02/2018, 08/23/2017 Tetanus booster 05/05/2021 05/05/2011 Pap test for age 21-65 05/04/2023 05/04/2020 COVID-19 vaccine series (2022- season) 2023 Influenza for age 9-49 06/08/2024 Pneumococcal series for age 6-64 Aged Out 10/30/2000, 08/14/2000 No longer eligibl e based on patient's age to complete this topic Tdap Completed 05/05/2011 HIV for age 15-65 Completed 12/02/2018 Procedures Procedure Name Priority Date/Time Associated Diagnosis Comments [employer] THIN PREP PAP SCREEN IMAGED Routine 05/04/2020 2:15 PM CDT ANTI HIV 1/2 Routine 12/02/2018 1:55 PM TOW FEEDER Encounter for supervision of normal first in first trimester from Last 3 Months or Most Recently Relevant to Health Maintenance Results * [employer] HE[employer] MA[employer]GER THIN PREP PAP SCREEN IMAGED (05/04/2020 2:15 PM CDT) Case Report Gynecologic Cytology Report ? Case: [id number] ? Authorizing Provider: ??Consuelo Shepherd ??Collected: ? 05/04/2020 1415 ? M, MD ? Ordering Location: ? [facility] ?Received: ?05/06/2020 1127 ? First Screen: ?Joel Goldberg ? Specimen: ?PLANT HE[employer] MANAGER ThinPrep Vial Screening, Cervical/Vaginal ? 05/11/2020 2:48 PM CDT [facility] INTERPRETATION/ RESULT NEGATIVE FOR INTRAEPITHELIAL LESION OR MALIGNANCY (NIL) (none) 05/11/2020 2:48 PM CDT [facility] IMEN ADEQUACY Satisfactory for evaluation Endocervical component present 05/11/2020 2:48 PM CDT [facility] HPV REQUEST HPV if ASCUS 05/11/2020 2:48 PM CDT [facility] Last Pap Date 05/11/2020 2:48 PM CDT [facility] Comment:None Menstrual Status 05/11/2020 2:48 PM CDT [facility] Comment:Depo Additional Information 05/11/2020 2:48 PM CDT [facility] Comment: Interpreted at [facility] - [address], [place] [address] Automated Review Successful 05/11/2020 2:48 PM CDT [facility] Comment:Specimen processed s uccessfully by automated betting clerk device, ThinPrep Imaging System, [employer] Note The pap test is a screening technique, not a diagnostic procedure. It is used primarily to screen for squamous cancers and precursor lesions. Published studies have shown that it is subject to both false negative and false positive results. The pap test should not be used as the sole means to diagnose or exclude pre-malignant and malignant lesions. 05/11/2020 2:48 PM CDT [facility] Other (Cervical/Vagina l) 05/04/2020 2:15 PM CDT 05/06/2020 11:27 AM CDT Consuelo Shepherd MD PATHOLOGY/ CYTOLOGY [facility] [address] [place] [address], [place] * ANTI HIV 1/2 (12/02/2018 1:55 PM TOW FEEDER) HIV-1/HIV-2 ANTIBODY Non-Reacti ve Non-Reacti ve 12/02/2018 10:03 PM TOW FEEDER [facility] Comment:HIV-1 p24 and HIV-1/ HIV-2 Ab not detected. Blood BLOOD SPECIMEN / Unknown Venipuncture / Unknown 12/02/2018 1:55 PM TOW FEEDER 12/02/2018 1:55 PM TOW FEEDER Yamileth Buitrago DO SEND OUTS [facility] [address] [place] [address], from Last 3 Months or Most Recently Relevant to Health Maintenance Care Teams Rn Baby Relationship Specialty [place] [address] [place] [address] PCP - General Family Practice 08/23/17
[2024-05-18 18:26] LABS: Strep A DNA Probe* NOT DETECTED (Not Detectd)
[2024-05-18 18:38] LABS: PCR FLU A Negative PCR FLU A (Negative); PCR FLU B Negative PCR FLU B (Negative); PCR RSV Negative PCR RSV (Negative); SARS PCR* Negative SARS-CoV-2 (Negative)
[2024-05-18 19:13] LABS: Hematocrit 39.8 % (33.0-51.0); Hemoglobin* 13.6 gm/dL (12.0-16.0); Immature Granulocytes Abs Auto 0.01 K/uL (0.00-0.30); Immature Granulocytes Pct Auto 0.2 %; Lymphocytes Percent Auto 15.3 % (20-44); Mean Corpuscular HGB Conc 34 gm/dL (32-36); Mean Corpuscular Hemoglobin 31 pg (26-34); Mean Corpuscular Volume 90 fL (80-100); Monocytes Percent Auto 11.1 % (0.0-11.0); Neutrophils Percent Auto 73.4 % (42.0-72.0); Platelet Count* 164 K/uL (140-440); RDW Coefficient of Variation % 11.2 % (11.5-15.5); Red Blood Count 4.43 m/uL (4.00-5.20); White Blood Count* 5.83 K/uL (4.50-11.00)
[2024-05-18 19:21] LABS: Lactate* 0.9 mmol/L (0.5-1.9)
[2024-05-18 19:24] LABS: Slide Review Reflex No
[2024-05-18 19:32] LABS: Ur HCG Qualitative* Negative (Negative)
[2024-05-18 19:34] LABS: Appearance Urine Clear (Clear); Bilirubin Urine Negative (Negative); Blood Urine 1+ (Negative); Color Urine Dark yellow (Yellow); Glucose Urine Negative (Negative); Ketones Urine 2+ (Negative); Leukocyte Esterase Urine Negative (Negative); Nitrite Urine Negative (Negative); Protein Urine 1+ (Negative); Specific Gravity Urine >= 1.030 (1.000-1.030); Urobilinogen Urine 0.2 (0.2-1.0); pH Urine 5.5 (5.0-8.5)
[2024-05-18 19:36] LABS: Mono Screen* Negative (Negative)
[2024-05-18 19:47] LABS: Albumin* 4.5 g/dL (3.3-5.0); Chloride* 102 mmol/L (96-114); Sodium* 136 mmol/L (135-149)
[2024-05-18 19:48] LABS: Potassium* 3.1 mmol/L (3.6-5.1)
[2024-05-18 19:50] LABS: Anion Gap 9 mEq/L (7-15); Carbon Dioxide* 25 mmol/L (20-32); Creatinine* 0.6 mg/dL (0.5-1.5); Est. Creatinine Clearance* 113.36; Estimated Glomerular Filt Rate 128 ml/min
[2024-05-18 19:51] LABS: Bacteria Urine Few; Mucus Urine Moderate; WBC Urine 0-2 (0-5)
[2024-05-18 19:51] LABS: Alanine Aminotransferase* 14 U/L (4-35); Alkaline Phosphatase* 54 U/L (40-150); Aspartate Amino Transferase* 25 U/L (12-35); Bilirubin Direct* 0.2 mg/dL (0.0-0.5); Bilirubin Total* 0.9 mg/dL (0.1-1.5); Blood Urea Nitrogen* 17 mg/dL (5-24); Calcium* 8.7 mg/dL (8.4-10.6); Glucose* 87 mg/dL (60-115); Total Protein* 7.7 g/dL (6.0-8.3)
[2024-05-18 19:54] LABS: C Reactive Protein* 6.5 mg/dL (0.5-1.0)
== END 2024-05-18 20:14 | disposition home or self-care (01) ==
PROVIDERS: Emergency Provider Family Medicine; PCP Physician Assistant Medical
DX: J03.90 Acute tonsillitis, unspecified (principal)
CPT/HCPCS: 36415; 80048; 80076; 81001; 81025; 83605; 85025; 86140; 86308; 87086; 87631; 87651; 99283; 99284

== ENCOUNTER 2024-12-08 14:09 | Outpatient (CLI) | payer MEDICAID, SELFPAY ==
[2024-12-10 19:24] LABS: HPV Source Cervical; HPV, High Risk by TMA Not Detected
== END 2024-12-08 14:10 | disposition home or self-care (01) ==
PROVIDERS: PCP Physician Assistant Medical; Visit Provider Physician Assistant Medical
DX: Z13.228 Encounter for screening for other metabolic disorders (principal); Z13.220 Encounter for screening for lipoid disorders; Z13.29 Encounter for screening for other suspected endocrine disorder; Z11.3 Encounter for screening for infections with a predominantly sexual mode of transmission; Z11.51 Encounter for screening for human papillomavirus (HPV); Z12.4 Encounter for screening for malignant neoplasm of cervix
CPT/HCPCS: 80053; 80061; 84443; 87491; 87591; 87624; 87625; 88141; 88142

== ENCOUNTER 2025-06-30 18:20 | Outpatient (CLI) | payer MEDICAID, SELFPAY | END 2025-06-30 18:21 | disposition home or self-care (01) | LOC: NFLDREF 07-06 02:50 | PROVIDERS: PCP Physician Assistant Medical; Referring Provider Physician Assistant Medical | DX: R10.31 Right lower quadrant pain (principal) | CPT/HCPCS: 87086 ==